=== PATIENT | male | born 1985 | race Caucasian/White ===

== ENCOUNTER 2021-03-06 14:18 | Emergency (ER) | payer SELFPAY ==
[2021-03-06 14:29] VITALS: BP 0/0; PULSE 0; RESP 0; TEMP -17.7; TEMP 0
== END 2021-03-06 14:30 | disposition left against medical advice (07) ==
LOC: UTC 14:22
PROVIDERS: Emergency Provider Nurse Practitioner Family
DX: Z53.21 Procedure and treatment not carried out due to patient leaving prior to being seen by health care provider (principal)